=== PATIENT | male | born 1990 | race Caucasian/White ===

== ENCOUNTER 2023-05-21 22:13 | Inpatient (IN) ==
[2023-05-21] MEDS ORDERED: ACETAMINOPHEN 1,000 MG/100 ML VIAL IV STA (22:24)
[2023-05-21] MEDS ORDERED: SODIUM CHLORIDE 0.9% 1,000 ML IV SCH (22:30)
[2023-05-21] MEDS ORDERED: KETOROLAC TROMETHAMINE 15 MG/ML VIAL IV STA (22:40)
[2023-05-21] MEDS ORDERED: cefTRIAXone SODIUM 2,000 MG/50 ML BAG IV STA (22:40)
--- NOTE | 2023-05-21 22:46 | Emergency Department Note ---
Impression & Plan COVID-19, Dehydration, Elevated lactic acid level, SIRS (systemic inflammatory response syndrome), Abnormal CT scan of head ED Provider Note NAME: DAY AYALA AGE: 32 SEX: M ARRIVES VIA: Walk-In INFORMANT: Patient ED PROVIDER(S): Bonilla Sheikh MD CHIEF COMPLAINT: flu like symptoms, weakness. PLAN: Disposition: Admit MEDICAL DECISION MAKING: The patient is a 32-year-old gentleman who presents to the emergency department via walk-in accompanied by his girlfriend and her mother for evaluation of worsening cough, congestion, generalized body aches, fevers, dizziness over the past couple of weeks where they report he acutely worsened today and has had repeated fainting episodes prior to coming in. He has not followed up with his primary care doctor and has not been taking any medications for his symptoms. Patient denies any discrete chest pain. The girlfriend at the bedside reports he has been weak and not himself. He reports repetitive nausea and vomiting and diarrhea. He denies any abdominal pain. He denies any smoking history or lung disease. On my evaluation the patient is ill-appearing, febrile to 39.3 with heart rate in the 110s and blood pressure 90s/50s. He appears clinically dry. He has boggy nasal turbinates. Lungs with scant intermittent wheeze and are otherwise clear. Abdomen is benign. There is no crepitus on palpation of the neck or chest. There is no pain with tracheal manipulation. He has mild injection of the posterior pharynx without edema, tongue elevation or trismus. He appears mildly delirious with poor attention but can be redirected and will state his name but will require frequent redirection to maintain conversation. Otherwise, no focal neurologic motor deficits. Neck is supple full range of motion. EKG demonstrates sinus tachycardia without overt acute ischemia. Chest x-ray negative for acute cardiopulmonary process per my personal preliminary review and interpretation. WBC 12 K, nonspecific with neutrophil predominance though mild lymphopenia and no left shift. H/H and platelets within normal limits. INR is normal at 1.0. Chemistry without metabolic acidosis. However anion gap is mildly above normal at 13. Initial lactic acid is 4.0 in the setting of the patient's clinically dry appearance with repeat value pending following IV fluid resuscitation. Magnesium 1.5 with IV repletion provided. LFTs are unremarkable. Procalcitonin is undetectable. Respiratory viral panel/[employer] was positive for COVID-19. Group A strep PCR was negative. Given the patient's significantly elevated lactate and degree of symptoms on presentation CT imaging ordered to further evaluate for possible complications of COVID-19. At this time it is unclear whether his COVID-19 test today reflects continued illness from 2 weeks ago or if this may be a new illness on top of what he had been dealing with previously. Patient was treated with over 30 cc/kg of IV fluids with normal saline, IV APAP, Toradol and empiric antibiotics with [address] V was negative for cerebral venous sinus thrombosis. CT of the head without contrast however describes subcortical edema in the occipital lobes which can be seen with posterior reversible encephalopathy syndrome. Given the patient's delirium on presentation MRI of the brain with and without contrast ordered and is pending. Upon reevaluation the patient was significantly improved following initial treatment. Heart rate and blood pressure had normalized and were stable. The patient had defervesced. O2 saturation was 98% on room air with normal respiratory effort. The patient was sleeping comfortably. He did awake easily with soft voice and his girlfriend at the bedside also did awaken. He answered questions appropriately and without effort which was significant improvement from his initial presentation. She did agree that his mental status had improved back to normal. Given the patient's improvement in the setting of lab work which supports his diagnosis of COVID-19 on PCR including lymphopenia and no left shift, in addition to undetectable procalcitonin suspect bacterial infection is less likely at this time. In particular, meningitis is suspected to be less likely and we will defer lumbar puncture at this time pending MRI of the brain. Case was discussed with Dr. Bonilla, [facility] hospitalist who will evaluate the patient for admission. CTA of the chest subsequently negative for PE or acute process otherwise. CT of the abdomen pelvis was also negative. Further management per admitting team. Triage Nursing notes reviewed and agree them. Prior/external medical records reviewed Vital Signs: reviewed Differential diagnosis: Sepsis, UTI, pneumonia, metabolic, electrolyte abnormalities, cardiac sources, intracerebral event, toxicologic, neurologic, as well as other pathologies. ER treatment provided: See below. Diagnostics interpreted by me: ECG: Sinus tachycardia, 113 bpm, no ectopy, no overt ST elevation or depression. Cardiac Monitoring: An order for continuous cardiac monitoring was placed and demonstrated sinus tachycardia, 113 bpm, no ectopy. Laboratory studies: See below Imaging studies: See below Consultation(s): Case was discussed with Dr. Bonilla, [facility] hospitalist who will evaluate the patient for admission. HPI: The patient is a 32-year-old gentleman who presents to the emergency department via walk-in accompanied by his girlfriend and her mother for evaluation of worsening cough, congestion, generalized body aches, fevers, dizziness over the past couple of weeks where they report he acutely worsened today and has had repeated fainting episodes prior to coming in. He has not followed up with his primary care doctor and has not been taking any medications for his symptoms. Patient denies any discrete chest pain. The girlfriend at the bedside reports he has been weak and not himself. He reports repetitive nausea and vomiting and diarrhea. He denies any abdominal pain. He denies any smoking history or lung disease. ROS: See above HPI for pertinent positives & negatives. A total of 10 systems reviewed and were otherwise negative. VITALS:See Below PHYSICAL EXAMINATION: GENERAL: Awake, alert, ill-appearing, in no distress HENT: Normocephalic, atraumatic. Boggy nasal turbinates. Oropharynx with dry mucous membranes with mild injection without edema, exudates, tongue elevation or trismus. EYES: Normal conjunctiva. Sclera non-icteric. EOMI. No nystamgus. PEARRL. NECK: Supple. No nuchal rigidity. FROM. No JVD. No stridor. No pain with tracheal manipulation. RESPIRATORY: Intermittent wheeze otherwise clear to auscultation. No crepitus on palpation of the neck or chest. CARDIAC: Tachycardic rate, normal rhythm. Extremities warm and well perfused. Pulses equal. ABDOMEN: Soft, non-distended. No tenderness to palpation. No rebound or guarding. No masses. RECTAL: Deferred. MUSCULOSKELETAL: Chest examination reveals no tenderness. The back is symmetrical on inspection without obvious abnormality. There is no CVA tenderness to palpation. No joint edema. LOWER EXTREMITIES: Calves are equal size bilaterally and non-tender. No edema. No discoloration. NEURO: Mildly delirious with poor attention but can be redirected and will state his name but will require frequent redirection to maintain conversation. No focal sensory or motor deficits noted. 5/5 strength and SILT x 4 extremities. Intact finger to nose. SKIN: No rash or jaundice noted. ED COURSE: Critical Care: I have personally spent greater than 45 minutes of critical care time in the direct management of this patient. This includes bedside care, interpretation of diagnostic studies, and testing, discussion with consultants, patient, and family members, and other required patient management activities. This 45 minutes is in excess of all separately billable procedures. Bonilla Sheikh MD Past Med/Surg History Medical History No significant past medical history Surgical History No significant past surgical history Social History Smoking Status: Never smoker Preferred Language: Iranian marital status: Single current occupational status: employed Feels Safe at Home: Yes Allergies Allergies Allergy/AdvReac Type Severity Reaction Status Date / Time bee venom protein (honey bee) Allergy Mild Verified 03/25/15 20:49 Home Meds Home Medications Medication Instructions Recorded Confirmed No Known Home Medications 05/22/23 05/22/23 Results & Data (ED) Vital Signs Vital Signs - 24 hr 05/21/23 22:13 05/21/23 22:24 05/21/23 22:24 Temperature 39.3 C H Temperature Source Oral Pulse Rate 122 H 111 H 105 H Pulse Rate [Apical] Pulse Strength [Apical] Respiratory Rate 16 25 H Respiratory Effort / Characteristics Non-Labored Spontaneous Respiratory Depth Normal Respiratory Pattern Blood Pressure 94/54 L 110/78 Blood Pressure [Right Arm] Blood Pressure Mean 67 88 Blood Pressure Mean [Right Arm] Blood Pressure Position [Right Arm] Pulse Oximetry 96 95 Oxygen Delivery Method Room Air Room Air Sepsis Recent Fever Within 48 Hours Yes Sepsis New/Unexplained Change in Mental Status Yes Sepsis Action Taken by Nursing Physician Notified 05/21/23 22:30 05/21/23 22:38 05/21/23 23:01 Temperature Temperature Source Pulse Rate 114 H 107 H 95 H Pulse Rate [Apical] Pulse Strength [Apical] Respiratory Rate 22 22 20 Respiratory Effort / Characteristics Respiratory Depth Respiratory Pattern Blood Pressure 111/81 117/74 Blood Pressure [Right Arm] Blood Pressure Mean 91 88 Blood Pressure Mean [Right Arm] Blood Pressure Position [Right Arm] Pulse Oximetry 96 96 97 Oxygen Delivery Method Room Air Room Air Room Air Sepsis Recent Fever Within 48 Hours Sepsis New/Unexplained Change in Mental Status Sepsis Action Taken by Nursing 05/21/23 23:30 05/22/23 00:00 05/22/23 01:00 EDT Temperature 37.2 C Temperature Source Oral Pulse Rate 98 H 96 H Pulse Rate [Apical] 84 Pulse Strength [Apical] Normal Respiratory Rate 20 19 20 Respiratory Effort / Characteristics Non-Labored Respiratory Depth Normal Respiratory Pattern Regular Blood Pressure 117/70 113/64 Blood Pressure [Right Arm] 111/68 Blood Pressure Mean 85 80 Blood Pressure Mean [Right Arm] 82 Blood Pressure Position [Right Arm] Lying Pulse Oximetry 97 98 96 Oxygen Delivery Method Room Air Room Air Room Air Sepsis Recent Fever Within 48 Hours Sepsis New/Unexplained Change in Mental Status Sepsis Action Taken by Nursing 05/22/23 01:14 EST 05/22/23 01:27 EST 05/22/23 01:30 EST Temperature Temperature Source Pulse Rate 85 84 82 Pulse Rate [Apical] Pulse Strength [Apical] Respiratory Rate 19 18 Respiratory Effort / Characteristics Respiratory Depth Respiratory Pattern Blood Pressure 111/68 108/64 Blood Pressure [Right Arm] Blood Pressure Mean 82 78 Blood Pressure Mean [Right Arm] Blood Pressure Position [Right Arm] Pulse Oximetry 97 98 Oxygen Delivery Method Room Air Room Air Sepsis Recent Fever Within 48 Hours Sepsis New/Unexplained Change in Mental Status Sepsis Action Taken by Nursing 05/22/23 02:30 05/22/23 03:00 Temperature 37.2 C Temperature Source Oral Pulse Rate Pulse Rate [Apical] 95 H 92 H Pulse Strength [Apical] Normal Normal Respiratory Rate 20 22 Respiratory Effort / Characteristics Non-Labored Non-Labored Respiratory Depth Normal Normal Respiratory Pattern Regular Regular Blood Pressure Blood Pressure [Right Arm] 97/59 L 103/69 Blood Pressure Mean Blood Pressure Mean [Right Arm] 71 80 Blood Pressure Position [Right Arm] Lying Lying Pulse Oximetry 98 100 Oxygen Delivery Method Room Air Room Air Sepsis Recent Fever Within 48 Hours Sepsis New/Unexplained Change in Mental Status Sepsis Action Taken by Nursing Laboratory Data Attestation: I reviewed the patient's lab results. 05/21/23 22:30 05/21/23 22:30 Lab Results 05/21/23 05/21/23 05/22/23 Range/Units 22:30 23:00 00:37 WBC 12.39 H (4.8-10.8) K/ul RBC 5.35 (4.70-6.10) M/uL Hgb 16.4 (14.0-18.0) g/dl Hct 46.9 (42.0-52.0) % MCV 87.7 (80.0-100.0) fL MCH 30.7 (25.0-34.0) pg MCHC 35.0 (32.0-36.0) g/dL RDW Std Deviation 39.3 (36.4-46.3) fL RDW Coeff of Ludy 12.3 (11.5-14.5) % Plt Count 347 (130-400) K/uL MPV 9.6 (9.4-12.4) fL Immature Gran % (Auto) 0.3 % Neut % (Auto) 86.4 % Lymph % (Auto) 7.1 % Gila % (Auto) 4.9 % Eos % (Auto) 0.9 % Baso % (Auto) 0.4 % Neut # (Auto) 10.70 H (1.40-6.50) K/uL Lymph # (Auto) 0.88 L (1.20-3.40) K/uL Gila # (Auto) 0.61 H (0.11-0.59) K/uL Eos # (Auto) 0.11 (0.00-0.50) K/uL Baso # (Auto) 0.05 (0.00-0.20) K/uL Immature Gran # (Auto) 0.04 (0.01-0.20) K/uL PT 11.3 (9.0-12.0) Seconds INR 1.0 (0.9-1.1) Sodium 139 (136-145) mmol/L Potassium 3.5 (3.5-5.1) mmol/L Chloride 103 (98-107) mmol/L Carbon Dioxide 23 (21-32) mmol/L Anion Gap 13 H (3-11) BUN 7 (6-23) mg/dl Creatinine 0.88 (0.6-1.4) mg/dl Est Cr Clr Drug Dosing 114.8 ml/min Est GFR ( Amer) 133.6 ml/min Est GFR (Non-Af Amer) 115.3 ml/min BUN/Creatinine Ratio 8.0 L (10-20) Glucose 100 H (70-99(Fasting)) mg/dl Lactate 4.0 H* 2.0 (0.4-2.0) mmol/L Calcium 9.4 (8.6-10.3) mg/dl Magnesium 1.5 L (1.7-2.4) mg/dl Total Bilirubin 0.5 (0.2-1.0) mg/dl Direct Bilirubin 0.1 (0-0.2) mg/dl AST 23 (13-39) U/L ALT 17 (7-52) U/L Alkaline Phosphatase 65 (34-104) U/L Troponin I High Sens 2.3 (0-20) pg/ml Total Protein 8.5 H (6.0-8.3) gm/dl Albumin 4.5 (3.4-5.0) gm/dl Lipase 14 (11-82) U/L Procalcitonin < 0.05 (0-0.5) ng/ml Urine Color Urine Appearance (Clear) Urine pH (4.5-7.5) Ur Specific Norton (1.000-1.030) Urine Protein (Negative) Urine Glucose (UA) (Negative) Urine Ketones (Negative) Urine Blood (Negative) Urine Nitrite (Negative) Urine Bilirubin (Negative) Urine Urobilinogen (Negative) Ur Leukocyte Esterase (Negative) Adenovirus (PCR) Not Detected (NotDetected) B. pertussis DNA (PCR) Not Detected (NotDetected) B.parapertussis DNA PCR Not Detected (NotDetected) C. pneumoniae DNA (PCR) Not Detected (NotDetected) Coronavirus OC43 (PCR) Not Detected (NotDetected) Coronavirus HKU1 (PCR) Not Detected (NotDetected) Coronavirus 229E (PCR) Not Detected (NotDetected) SARS-CoV-2 (PCR) DETECTED A* (NotDetected) Coronavirus NL63 (PCR) Not Detected (NotDetected) Human Metapneumovir PCR Not Detected (NotDetected) Influenza Type A (PCR) Not Detected (NotDetected) Influenza Type B (PCR) Not Detected (NotDetected) M. pneumoniae (PCR) Not Detected (NotDetected) Parainfluenza 1 (PCR) Not Detected (NotDetected) Parainfluenza 2 (PCR) Not Detected (NotDetected) Parainfluenza 3 (PCR) Not Detected (NotDetected) Parainfluenza 4 (PCR) Not Detected (NotDetected) RSV (PCR) Not Detected (NotDetected) Entero/Rhino (PCR) Not Detected (NotDetected) Group A Strep (PCR) NOT DETECTED (NotDetected) 05/22/23 Range/Units 01:05 EST WBC (4.8-10.8) K/ul RBC (4.70-6.10) M/uL Hgb (14.0-18.0) g/dl Hct (42.0-52.0) % MCV (80.0-100.0) fL MCH (25.0-34.0) pg MCHC (32.0-36.0) g/dL RDW Std Deviation (36.4-46.3) fL RDW Coeff of Ludy (11.5-14.5) % Plt Count (130-400) K/uL MPV (9.4-12.4) fL Immature Gran % (Auto) % Neut % (Auto) % Lymph % (Auto) % Gila % (Auto) % Eos % (Auto) % Baso % (Auto) % Neut # (Auto) (1.40-6.50) K/uL Lymph # (Auto) (1.20-3.40) K/uL Gila # (Auto) (0.11-0.59) K/uL Eos # (Auto) (0.00-0.50) K/uL Baso # (Auto) (0.00-0.20) K/uL Immature Gran # (Auto) (0.01-0.20) K/uL PT (9.0-12.0) Seconds INR (0.9-1.1) Sodium (136-145) mmol/L Potassium (3.5-5.1) mmol/L Chloride (98-107) mmol/L Carbon Dioxide (21-32) mmol/L Anion Gap (3-11) BUN (6-23) mg/dl Creatinine (0.6-1.4) mg/dl Est Cr Clr Drug Dosing ml/min Est GFR ( Amer) ml/min Est GFR (Non-Af Amer) ml/min BUN/Creatinine Ratio (10-20) Glucose (70-99(Fasting)) mg/dl Lactate (0.4-2.0) mmol/L Calcium (8.6-10.3) mg/dl Magnesium (1.7-2.4) mg/dl Total Bilirubin (0.2-1.0) mg/dl Direct Bilirubin (0-0.2) mg/dl AST (13-39) U/L ALT (7-52) U/L Alkaline Phosphatase (34-104) U/L Troponin I High Sens (0-20) pg/ml Total Protein (6.0-8.3) gm/dl Albumin (3.4-5.0) gm/dl Lipase (11-82) U/L Procalcitonin (0-0.5) ng/ml Urine Color [place] Urine Appearance Clear (Clear) Urine pH 6.5 (4.5-7.5) Ur Specific Norton 1.024 (1.000-1.030) Urine Protein Negative (Negative) Urine Glucose (UA) Negative (Negative) Urine Ketones Negative (Negative) Urine Blood Negative (Negative) Urine Nitrite Negative (Negative) Urine Bilirubin Negative (Negative) Urine Urobilinogen Negative (Negative) Ur Leukocyte Esterase Negative (Negative) Adenovirus (PCR) (NotDetected) B. pertussis DNA (PCR) (NotDetected) B.parapertussis DNA PCR (NotDetected) C. pneumoniae DNA (PCR) (NotDetected) Coronavirus OC43 (PCR) (NotDetected) Coronavirus HKU1 (PCR) (NotDetected) Coronavirus 229E (PCR) (NotDetected) SARS-CoV-2 (PCR) (NotDetected) Coronavirus NL63 (PCR) (NotDetected) Human Metapneumovir PCR (NotDetected) Influenza Type A (PCR) (NotDetected) Influenza Type B (PCR) (NotDetected) M. pneumoniae (PCR) (NotDetected) Parainfluenza 1 (PCR) (NotDetected) Parainfluenza 2 (PCR) (NotDetected) Parainfluenza 3 (PCR) (NotDetected) Parainfluenza 4 (PCR) (NotDetected) RSV (PCR) (NotDetected) Entero/Rhino (PCR) (NotDetected) Group A Strep (PCR) (NotDetected) Administered Medications Lactated Ringer's (Lr) 1,000 mls @ 200 mls/hr IV .Q5H ONE Stop: 05/22/23 07:14 Last Admin: 05/22/23 02:49 Dose: 200 mls/hr Documented By: ROJAS Discontinued Medications Sodium Chloride (Nss) 1,000 mls @ 999 mls/hr IV .Q1H1M VIRGEN Stop: 05/21/23 23:30 Last Infusion: 05/21/23 23:56 Dose: Infused Documented By: Admin: 05/21/23 23:00 Dose: 999 mls/hr Documented By: ROJAS Sodium Chloride (Nss) 1,000 mls @ 999 mls/hr IV .Q1H1M VIRGEN Stop: 05/22/23 00:30 Last Infusion: 05/22/23 01:00 EDT Dose: Infused Documented By: Admin: 05/21/23 23:55 Dose: 999 mls/hr Documented By: Infusion: 05/21/23 23:55 Dose: Infused Documented By: Admin: 05/21/23 23:00 Dose: 999 mls/hr Documented By: ROJAS Acetaminophen (Ofirmev) 1,000 mg in 100 mls @ 400 mls/hr IV NOW STA Stop: 05/21/23 22:38 Last Infusion: 05/21/23 23:18 Dose: Infused Documented By: Admin: 05/21/23 23:00 Dose: 400 mls/hr Documented By: ROJAS Ceftriaxone Sodium (Rocephin) 2,000 mg in 50 mls @ 100 mls/hr IV NOW STA Stop: 05/21/23 23:09 Last Infusion: 05/21/23 23:55 Dose: Infused Documented By: Admin: 05/21/23 23:19 Dose: 100 mls/hr Documented By: ROJAS Magnesium Sulfate/Dextrose (Magnesium Sulfate / D5w) 1 gm in 100 mls @ 200 mls/hr IV Q30M VIRGEN Stop: 05/22/23 00:42 Last Infusion: 05/22/23 02:00 Dose: Infused Documented By: Admin: 05/22/23 01:27 EDT Dose: 200 mls/hr Documented By: Infusion: 05/22/23 00:30 Dose: Infused Documented By: Admin: 05/21/23 23:55 Dose: 200 mls/hr Documented By: ROJAS Ioversol (Optiray 320 500ml) 109 ml IV ONCE ONE Stop: 05/22/23 01:12 EST Last Admin: 05/22/23 01:11 EDT Dose: 109 ml Documented By: ESTRADA Ketorolac Tromethamine (Ketorolac Tromethamine 15 Mg/Ml Vial) 15 mg IV NOW STA Stop: 05/21/23 22:41 Last Admin: 05/21/23 23:00 Dose: 15 mg Documented By: ROJAS Imaging Data Radiologist's Impression: Abdomen/Pelvis CT 05/22/23 00:12 Exam(s): CT ABDOMEN + PELVIS With Contrast IV Amt: 109 ml opti 320 EXAM: CT Abdomen and Pelvis With Intravenous Contrast CLINICAL HISTORY: Reason for exam: Covid, n/v. TECHNIQUE: Axial computed tomography images of the abdomen and pelvis with intravenous contrast. Automated exposure control was utilized for the study. A dose lowering technique was utilized adhering to the principles of ALARA. CONTRAST: Patient received 109 ml opti 320 of IV contrast COMPARISON: No relevant prior studies available. FINDINGS: Lung bases: Unremarkable. No mass. No consolidation. ABDOMEN: Liver: Unremarkable. No mass. Gallbladder and bile ducts: Unremarkable. No calcified stones. No ductal dilation. Pancreas: Unremarkable. No mass. No ductal dilation. Spleen: Unremarkable. No splenomegaly. Adrenals: Unremarkable. No mass. Kidneys and ureters: Unremarkable. No solid mass. No hydronephrosis. Stomach and bowel: Unremarkable. No obstruction. No mucosal thickening. PELVIS: Appendix: No findings to suggest acute appendicitis. Bladder: Unremarkable. No mass. Reproductive: Unremarkable as visualized. ABDOMEN and PELVIS: Intraperitoneal space: Unremarkable. No free air. No significant fluid collection. Bones/joints: No acute fracture. No dislocation. Soft tissues: Unremarkable. Vasculature: Unremarkable. No abdominal aortic aneurysm. Lymph nodes: Unremarkable. No enlarged lymph nodes. IMPRESSION: Normal abdomen and pelvis CT. Electronically signed by: Chan Mccain MD 05/22/23 03:12 AM Chest CTA 05/22/23 00:12 Exam(s): CTA CHEST IV Amt: 109 ml opti 320 EXAM: CT Angiography Chest With Intravenous Contrast CLINICAL HISTORY: Reason for exam: Covid, sob, tachcyardia, r/o PE. TECHNIQUE: Axial computed tomographic angiography images of the chest with intravenous contrast. Automated exposure control was utilized for the study. A dose lowering technique was utilized adhering to the principles of ALARA. MIP reconstructed images were created and reviewed. COMPARISON: No relevant prior studies available. FINDINGS: Pulmonary arteries: Unremarkable. No pulmonary embolism. Aorta: No acute findings. No thoracic aortic aneurysm. Lungs: Unremarkable. No mass. No consolidation. Pleural space: Unremarkable. No significant effusion. No pneumothorax. Heart: Unremarkable. No cardiomegaly. No significant pericardial effusion. No evidence of RV dysfunction. Bones/joints: No acute fracture. No dislocation. Soft tissues: Unremarkable. Lymph nodes: Unremarkable. No enlarged lymph nodes. IMPRESSION: Normal chest CTA. No pulmonary embolism. Electronically signed by: Chan Mccain MD 05/22/23 03:[address] 05/22/23 00:13 CR Exam(s): CT HEAD Without Contrast EXAM: CT Head Without Intravenous Contrast CLINICAL HISTORY: Reason for exam: syncope UMANZOR, covid. TECHNIQUE: Axial computed tomography images of the head/brain without intravenous contrast. Automated exposure control was utilized for the study. A dose lowering technique was utilized adhering to the principles of ALARA. COMPARISON: No relevant prior studies available. FINDINGS: Brain: There is subcortical edema in the occipital lobes. No hemorrhage. No significant white matter disease. Ventricles: Unremarkable. No ventriculomegaly. Bones/joints: Unremarkable. No acute fracture. Soft tissues: Unremarkable. Sinuses: Unremarkable as visualized. No acute sinusitis. Mastoid air cells: Unremarkable as visualized. No mastoid effusion. IMPRESSION: Subcortical edema in the occipital lobes, which can be seen with posterior reversible encephalopathy syndrome. If there is continued clinical concern, an MRI may be of benefit for further evaluation. Communications: Verify Receipt Electronically signed by: Uzma Merlos MD 05/22/23 01:[address] 05/22/23 00:13 Exam(s): CT HEAD With Contrast IV Amt: 109 ml opti 320 EXAM: CT Angiography Head With Intravenous Contrast CLINICAL HISTORY: Reason for exam: Covid, UMANZOR, syncope r/o CVST. TECHNIQUE: Axial computed tomographic angiography images of the head with intravenous contrast. Automated exposure control was utilized for the study. A dose lowering technique was utilized adhering to the principles of ALARA. MIP reconstructed images were created and reviewed. CONTRAST: Patient received 109 ml opti 320 of IV contrast COMPARISON: No relevant prior studies available. FINDINGS: The dural venous sinuses are patent. Right internal carotid artery: No acute findings. Intracranial segment is patent with no significant stenosis. No aneurysm. Right anterior cerebral artery: Unremarkable. No occlusion or significant stenosis. No aneurysm. Right middle cerebral artery: Unremarkable. No occlusion or significant stenosis. No aneurysm. Right posterior cerebral artery: Unremarkable. No occlusion or significant stenosis. No aneurysm. Right vertebral artery: Unremarkable as visualized. Left internal carotid artery: No acute findings. Intracranial segment is patent with no significant stenosis. No aneurysm. Left anterior cerebral artery: Unremarkable. No occlusion or significant stenosis. No aneurysm. Left middle cerebral artery: Unremarkable. No occlusion or significant stenosis. No aneurysm. Left posterior cerebral artery: Unremarkable. No occlusion or significant stenosis. No aneurysm. Left vertebral artery: Unremarkable as visualized. Basilar artery: Unremarkable. No occlusion or significant stenosis. No aneurysm. IMPRESSION: Negative CT angiogram of the head. Electronically signed by: Uzma Merlos MD 05/22/23 01:42 AM Discharge Plan Visit Data Chief Complaint: Illness Stated Complaint: FEVER,INCOHERENT,TACHYCARDIA,VOMITING,SYNCOPE ED Provider: Bonilla Sheikh Discharge Problem: COVID-19, Dehydration, Elevated lactic acid level, SIRS (systemic inflammatory response syndrome), Abnormal CT scan of head Discharge Instructions Interventions: ED Discharge Assessment Last Done: 05/22/23 03:36
[2023-05-21 22:52] LABS: Basophils # (auto) 0.05 K/uL (0.00-0.20); Basophils % (auto) 0.4 %; Eosinophils # (auto) 0.11 K/uL (0.00-0.50); Eosinophils % (auto) 0.9 %; Hematocrit (blood only) 46.9 % (42.0-52.0); Hemoglobin 16.4 g/dl (14.0-18.0); Immature Granulocytes # (auto) 0.04 K/uL (0.01-0.20); Immature Granulocytes % (auto) 0.3 %; Lymphocytes # (auto) 0.88 K/uL (1.20-3.40); Lymphocytes % (auto) 7.1 %; Mean Corpuscular Hemoglobin 30.7 pg (25.0-34.0); Mean Corpuscular Volume 87.7 fL (80.0-100.0); Mean Platelet Volume 9.6 fL (9.4-12.4); Monocytes # (auto) 0.61 K/uL (0.11-0.59); Monocytes % (auto) 4.9 %; Neutrophils % (auto) 86.4 %; Platelet Count 347 K/uL (130-400); RDW Coefficient of Variation 12.3 % (11.5-14.5); RDW Standard Deviation 39.3 fL (36.4-46.3); Red Blood Count 5.35 M/uL (4.70-6.10); White Blood Count 12.39 K/ul (4.8-10.8)
[2023-05-21] MEDS: SODIUM CHLORIDE 0.9% 1,000 ML IV SCH ×2 (23:00→23:55)
[2023-05-21 23:06] LABS: Albumin Level 4.5 gm/dl (3.4-5.0); Bilirubin Direct 0.1 mg/dl (0-0.2); Bilirubin,Total 0.5 mg/dl (0.2-1.0); Calcium 9.4 mg/dl (8.6-10.3); Magnesium 1.5 mg/dl (1.7-2.4); Potassium 3.5 mmol/L (3.5-5.1)
[2023-05-21 23:12] LABS: Creatinine Clr Calc Pharmacy 114.8 ml/min; Est GFR (African American) 133.6 ml/min; Est GFR (Non-African American) 115.3 ml/min; Total Protein 8.5 gm/dl (6.0-8.3)
[2023-05-21 23:26] LABS: Prothrombin Time 11.3 Seconds (9.0-12.0)
[2023-05-21 23:38] LABS: Adenovirus PCR Not Detected (NotDetected); Bordetella parapertussis PCR Not Detected (NotDetected); Bordetella pertussis PCR Not Detected (NotDetected); Chlamydia pneumoniae PCR Not Detected (NotDetected); Coronavirus 229E PCR Not Detected (NotDetected); Coronavirus HKU1 PCR Not Detected (NotDetected); Coronavirus NL63 PCR Not Detected (NotDetected); Coronavirus OC43PCR Not Detected (NotDetected); Human Metapneumovirus PCR Not Detected (NotDetected); Influenza A PCR Not Detected (NotDetected); Influenza B PCR Not Detected (NotDetected); Mycoplasma pneumoniae PCR Not Detected (NotDetected); Parainfluenza Virus 1 PCR Not Detected (NotDetected); Parainfluenza Virus 2 PCR Not Detected (NotDetected); Parainfluenza Virus 3 PCR Not Detected (NotDetected); Parainfluenza Virus 4 PCR Not Detected (NotDetected); Respiratory Syncytial VirusPCR Not Detected (NotDetected); Rhinovirus/Enterovirus PCR Not Detected (NotDetected)
[2023-05-21 23:55] LABS: Coronavirus CoV-2 (COVID19)PCR DETECTED (NotDetected)
[2023-05-21] MEDS: MAGNESIUM SULFATE / D5W 1 GM/100 ML BAG IV SCH (23:55)
[2023-05-22] MEDS ORDERED: OPTIRAY 320 500ml IV ONE (01:11)
[2023-05-22 01:15] LABS: Troponin I High Sensitivity 2.3 pg/ml (0-20)
[2023-05-22] MEDS: MAGNESIUM SULFATE / D5W 1 GM/100 ML BAG IV SCH (01:27)
[2023-05-22 01:33] LABS: Appearance Urine Clear (Clear); Bilirubin Urine Negative (Negative); Blood Urine Negative (Negative); Color Urine Orange; Glucose Urine UA Negative (Negative); Ketones Urine Negative (Negative); Leukocyte Esterase Urine Negative (Negative); Nitrite Urine Negative (Negative); Protein Urine Negative (Negative); Specific Gravity Urine 1.024 (1.000-1.030); Urobilinogen Urine Negative (Negative); pH Urine 6.5 (4.5-7.5)
--- NOTE | 2023-05-22 01:43 | CT Scan Report ---
Exam(s): CT HEAD With Contrast IV Amt: 109 ml opti 320 EXAM: CT Angiography Head With Intravenous Contrast CLINICAL HISTORY: Reason for exam: Covid, UMANZOR, syncope r/o CVST. TECHNIQUE: Axial computed tomographic angiography images of the head with intravenous contrast. Automated exposure control was utilized for the study. A dose lowering technique was utilized adhering to the principles of ALARA. MIP reconstructed images were created and reviewed. CONTRAST: Patient received 109 ml opti 320 of IV contrast COMPARISON: No relevant prior studies available. FINDINGS: The dural venous sinuses are patent. Right internal carotid artery: No acute findings. Intracranial segment is patent with no significant stenosis. No aneurysm. Right anterior cerebral artery: Unremarkable. No occlusion or significant stenosis. No aneurysm. Right middle cerebral artery: Unremarkable. No occlusion or significant stenosis. No aneurysm. Right posterior cerebral artery: Unremarkable. No occlusion or significant stenosis. No aneurysm. Right vertebral artery: Unremarkable as visualized. Left internal carotid artery: No acute findings. Intracranial segment is patent with no significant stenosis. No aneurysm. Left anterior cerebral artery: Unremarkable. No occlusion or significant stenosis. No aneurysm. Left middle cerebral artery: Unremarkable. No occlusion or significant stenosis. No aneurysm. Left posterior cerebral artery: Unremarkable. No occlusion or significant stenosis. No aneurysm. Left vertebral artery: Unremarkable as visualized. Basilar artery: Unremarkable. No occlusion or significant stenosis. No aneurysm. IMPRESSION: Negative CT angiogram of the head. Electronically signed by: Uzma Merlos MD 05/22/23 01:42 AM
--- NOTE | 2023-05-22 01:46 | CT Scan Report ---
Exam(s): CT HEAD Without Contrast EXAM: CT Head Without Intravenous Contrast CLINICAL HISTORY: Reason for exam: syncope UMANZOR, covid. TECHNIQUE: Axial computed tomography images of the head/brain without intravenous contrast. Automated exposure control was utilized for the study. A dose lowering technique was utilized adhering to the principles of ALARA. COMPARISON: No relevant prior studies available. FINDINGS: Brain: There is subcortical edema in the occipital lobes. No hemorrhage. No significant white matter disease. Ventricles: Unremarkable. No ventriculomegaly. Bones/joints: Unremarkable. No acute fracture. Soft tissues: Unremarkable. Sinuses: Unremarkable as visualized. No acute sinusitis. Mastoid air cells: Unremarkable as visualized. No mastoid effusion. IMPRESSION: Subcortical edema in the occipital lobes, which can be seen with posterior reversible encephalopathy syndrome. If there is continued clinical concern, an MRI may be of benefit for further evaluation. Communications: Verify Receipt Electronically signed by: Uzma Merlos MD 05/22/23 01:44 AM
[2023-05-22] MEDS ORDERED: LACTATED RINGER'S 1,000 ML IV ONE (02:15)
--- NOTE | 2023-05-22 03:01 | History & Physical Report ---
Date of Service May 22, 2023 Assessment & Plan (1) Sepsis: Plan: Secondary to COVID-19 bronchitis with superimposed bacterial infection O2 sats greater than 94% at the ER Headache, transient encephalopathy symptoms, subcortical edema on CT head, possible posterior reversible encephalopathy syndrome secondary to COVID-19 illness Medical telemetry CS, Azithromycin course MRI brain, Neurology consult Re: Abnormal CT head Seizure precautions for possible PRES DVT prophylaxis. Lovenox subcu Full code Text document was generated using [employer] voice recognition software. It may contain grammatical or spelling errors. Kindly contact undersigned for clarification of any documentation item in question. History of Present Illness Chief Complaint: Headache, nausea, vomiting, confusion as per records Primary Care Provider: NO PCP History obtained from patient and records. No significant medical history. 2 weeks history of junky cough symptoms productive of yellow-green sputum, body aches, poor appetite, chest pain/shortness of breath from coughing. Possible sick contacts at work. Patient completed COVID-19 vaccination. Yesterday, patient woke up with generalized headache symptoms followed by nausea, emesis. No abdominal pain. Patient somewhat confused as per girlfriend. Patient brought to ER for evaluation. IV ceftriaxone administered at the ER. Patient mentation currently back to baseline. Medical History as above Surgical History : None Family History : Heart disease Personal/Social history : Non-smoker, occasional EtOH intake, refuse bin morning caregiver's/state employee Allergies Allergy/AdvReac Type Severity Reaction Status Date / Time bee venom protein (honey bee) Allergy Mild Verified 03/25/15 20:49 Home Medications Medication Instructions Recorded Confirmed Type No Known Home Medications 05/22/23 05/22/23 History Past Med/Surg History Medical History No significant past medical history Surgical History No significant past surgical history Social History Smoking Status: Never smoker Preferred Language: Estonian marital status: Single current occupational status: employed Feels Safe at Home: Yes Review of Systems Review of Systems: As per HPI, all other systems reviewed and negative Physical Exam Physical Exam: GENERAL: Slightly uncomfortable, no respiratory distress SKIN: Normal color, warm HEENT: [place] palpebral conjunctivae, no ptosis, dry buccal mucosa NECK : Supple, no tenderness CHEST : Decreased breath sounds, no tenderness HEART : RRR, no obvious murmurs ABDOMEN: Some distention, nontender EXTREMITIES : No LE swelling/tenderness, no other conspicuous deformities noted NEUROLOGIC : Coherent, no facial asymmetry, no other gross focality Results & Data Results & Data Vital Signs (Past 12 Hours) Vital Signs Temp Pulse Pulse Resp BP BP Pulse Ox 05/22/23 01:30 EST 82 18 108/64 98 05/22/23 01:14 EST 85 19 111/68 97 05/22/23 01:00 EDT 37.2 C 84 20 111/68 96 05/22/23 00:00 96 H 19 113/64 98 05/21/23 23:30 98 H 20 117/70 97 05/21/23 23:01 95 H 20 117/74 97 05/21/23 22:38 107 H 22 111/81 96 05/21/23 22:30 114 H 22 96 05/21/23 22:24 105 H 25 H 110/78 95 05/21/23 22:24 111 H 05/21/23 22:13 39.3 C H 122 H 16 94/54 L 96 O2 Del Method 05/22/23 01:30 EST Room Air 05/22/23 01:14 EST Room Air 05/22/23 01:00 EDT Room Air 05/22/23 00:00 Room Air 05/21/23 23:30 Room Air 05/21/23 23:01 Room Air 05/21/23 22:38 Room Air 05/21/23 22:30 Room Air 05/21/23 22:24 Room Air 05/21/23 22:24 05/21/23 22:13 Room Air Laboratory Results Laboratory Results WBC 12.39 K/ul (4.8-10.8) H 05/21/23 22:30 RBC 5.35 M/uL (4.70-6.10) 05/21/23 22:30 Hgb 16.4 g/dl (14.0-18.0) 05/21/23 22:30 Hct 46.9 % (42.0-52.0) 05/21/23 22:30 MCV 87.7 fL (80.0-100.0) 05/21/23 22:30 MCH 30.7 pg (25.0-34.0) 05/21/23: MCHC 35.0 g/dL (32.0-36.0) 05/21/23: RDW Std Deviation 39.3 fL (36.4-46.3) 05/21/23: RDW Coeff of [place] 12.3 % (11.5-14.5) 05/21/23: Plt Count 347 K/uL (130-400) 05/21/23: MPV 9.6 fL (9.4-12.4) 05/21/23: Immature Gran % (Auto) 0.3 % 05/21/23: Neut % (Auto) 86.4 % 05/21/23: Lymph % (Auto) 7.1 % 05/21/23: Patrick % (Auto) 4.9 % 05/21/23: Eos % (Auto) 0.9 % 05/21/23: Baso % (Auto) 0.4 % 05/21/23: Neut # (Auto) 10.70 K/uL (1.40-6.50) H 05/21/23 22: Lymph # (Auto) 0.88 K/uL (1.20-3.40) L 05/21/23 22: Patrick # (Auto) 0.61 K/uL (0.11-0.59) H 05/21/23 22:30 Eos # (Auto) 0.11 K/uL (0.00-0.50) 05/21/23 22: Baso # (Auto) 0.05 K/uL (0.00-0.20) 05/21/23: Immature Gran # (Auto) 0.04 K/uL (0.01-0.20) 05/21/23 22: PT 11.3 Seconds (9.0-12.0) 05/21/23 22: INR 1.0 (0.9-1.1) 05/21/23 22:30 Sodium 139 mmol/L (136-145) 05/21/23 22: Potassium 3.5 mmol/L (3.5-5.1) 05/21/23 22:30 Chloride 103 mmol/L (98-107) 05/21/23 22:30 Carbon Dioxide 23 mmol/L (21-32) 05/21/23 22:30 Anion Gap 13 (3-11) H 05/21/23 22:30 BUN 7 mg/dl (6-23) 05/21/23 22:30 Creatinine 0.88 mg/dl (0.6-1.4) 05/21/23 22:30 Est Cr Clr Drug Dosing 114.8 ml/min 05/21/23 22:30 Est GFR ( Amer) 133.6 ml/min 05/21/23 22:30 Est GFR (Non-Af Amer) 115.3 ml/min 05/21/23 22:30 BUN/Creatinine Ratio 8.0 (10-20) L 05/21/23 22:30 Glucose 100 mg/dl (70-99(Fasting)) H 05/21/23 22:30 Lactate 2.0 mmol/L (0.4-2.0) 05/22/23 00:37 Calcium 9.4 mg/dl (8.6-10.3) 05/21/23 22:30 Magnesium 1.5 mg/dl (1.7-2.4) L 05/21/23 22:30 Total Bilirubin 0.5 mg/dl (0.2-1.0) 05/21/23 22:30 Direct Bilirubin 0.1 mg/dl (0-0.2) 05/21/23 22:30 AST 23 U/L (13-39) 05/21/23 22:30 ALT 17 U/L (7-52) 05/21/23 22:30 Alkaline Phosphatase 65 U/L (34-104) 05/21/23 22:30 Troponin I High Sens 2.3 pg/ml (0-20) 05/22/23 00:37 Total Protein 8.5 gm/dl (6.0-8.3) H 05/21/23 22:30 Albumin 4.5 gm/dl (3.4-5.0) 05/21/23 22:30 Lipase 14 U/L (11-82) 05/22/23 00:37 Procalcitonin < 0.05 ng/ml (0-0.5) 05/21/23 22:30 Urine Color [place] 05/22/23 01:05 EST Urine Appearance Clear (Clear) 05/22/23 01:05 EST Urine pH 6.5 (4.5-7.5) 05/22/23 01:05 EST Ur Specific [place] 1.024 (1.000-1.030) 05/22/23 01:05 EST Urine Protein Negative (Negative) 05/22/23 01:05 EST Urine Glucose (UA) Negative (Negative) 05/22/23 01:05 EST Urine Ketones Negative (Negative) 05/22/23 01:05 EST Urine Blood Negative (Negative) 05/22/23 01:05 EST Urine Nitrite Negative (Negative) 05/22/23 01:05 EST Urine Bilirubin Negative (Negative) 05/22/23 01:05 EST Urine Urobilinogen Negative (Negative) 05/22/23 01:05 EST Ur Leukocyte Esterase Negative (Negative) 05/22/23 01:05 EST Adenovirus (PCR) Not Detected (NotDetected) 05/21/23 22:30 B. pertussis DNA (PCR) Not Detected (NotDetected) 05/21/23 22:30 B.parapertussis DNA PCR Not Detected (NotDetected) 05/21/23 22:30 C. pneumoniae DNA (PCR) Not Detected (NotDetected) 05/21/23 22:30 Coronavirus OC43 (PCR) Not Detected (NotDetected) 05/21/23 22:30 Coronavirus HKU1 (PCR) Not Detected (NotDetected) 05/21/23 22:30 Coronavirus 229E (PCR) Not Detected (NotDetected) 05/21/23 22:30 SARS-CoV-2 (PCR) DETECTED (NotDetected) A* 05/21/23 22:30 Coronavirus NL63 (PCR) Not Detected (NotDetected) 05/21/23 22:30 Human Metapneumovir PCR Not Detected (NotDetected) 05/21/23 22:30 Influenza Type A (PCR) Not Detected (NotDetected) 05/21/23 22:30 Influenza Type B (PCR) Not Detected (NotDetected) 05/21/23 22:30 M. pneumoniae (PCR) Not Detected (NotDetected) 05/21/23 22:30 Parainfluenza 1 (PCR) Not Detected (NotDetected) 05/21/23 22:30 Parainfluenza 2 (PCR) Not Detected (NotDetected) 05/21/23 22:30 Parainfluenza 3 (PCR) Not Detected (NotDetected) 05/21/23 22:30 Parainfluenza 4 (PCR) Not Detected (NotDetected) 05/21/23 22:30 RSV (PCR) Not Detected (NotDetected) 05/21/23 22:30 Entero/Rhino (PCR) Not Detected (NotDetected) 05/21/23 22:30 Group A Strep (PCR) NOT DETECTED (NotDetected) 05/21/23 23:[address] 05/22/23 00:13 CR Exam(s): CT HEAD Without Contrast EXAM: CT Head Without Intravenous Contrast CLINICAL HISTORY: Reason for exam: syncope UMANZOR, covid. TECHNIQUE: Axial computed tomography images of the head/brain without intravenous contrast. Automated exposure control was utilized for the study. A dose lowering technique was utilized adhering to the principles of ALARA. COMPARISON: No relevant prior studies available. FINDINGS: Brain: There is subcortical edema in the occipital lobes. No hemorrhage. No significant white matter disease. Ventricles: Unremarkable. No ventriculomegaly. Bones/joints: Unremarkable. No acute fracture. Soft tissues: Unremarkable. Sinuses: Unremarkable as visualized. No acute sinusitis. Mastoid air cells: Unremarkable as visualized. No mastoid effusion. IMPRESSION: Subcortical edema in the occipital lobes, which can be seen with posterior reversible encephalopathy syndrome. If there is continued clinical concern, an MRI may be of benefit for further evaluation. Communications: Verify Receipt Electronically signed by: Uzma Merlos MD 05/22/23 01:[address] 05/22/23 00:13 Exam(s): CT HEAD With Contrast IV Amt: 109 ml opti 320 EXAM: CT Angiography Head With Intravenous Contrast CLINICAL HISTORY: Reason for exam: Covid, UMANZOR, syncope r/o CVST. TECHNIQUE: Axial computed tomographic angiography images of the head with intravenous contrast. Automated exposure control was utilized for the study. A dose lowering technique was utilized adhering to the principles of ALARA. MIP reconstructed images were created and reviewed. CONTRAST: Patient received 109 ml opti 320 of IV contrast COMPARISON: No relevant prior studies available. FINDINGS: The dural venous sinuses are patent. Right internal carotid artery: No acute findings. Intracranial segment is patent with no significant stenosis. No aneurysm. Right anterior cerebral artery: Unremarkable. No occlusion or significant stenosis. No aneurysm. Right middle cerebral artery: Unremarkable. No occlusion or significant stenosis. No aneurysm. Right posterior cerebral artery: Unremarkable. No occlusion or significant stenosis. No aneurysm. Right vertebral artery: Unremarkable as visualized. Left internal carotid artery: No acute findings. Intracranial segment is patent with no significant stenosis. No aneurysm. Left anterior cerebral artery: Unremarkable. No occlusion or significant stenosis. No aneurysm. Left middle cerebral artery: Unremarkable. No occlusion or significant stenosis. No aneurysm. Left posterior cerebral artery: Unremarkable. No occlusion or significant stenosis. No aneurysm. Left vertebral artery: Unremarkable as visualized. Basilar artery: Unremarkable. No occlusion or significant stenosis. No aneurysm. IMPRESSION: Negative CT angiogram of the head. Electronically signed by: Uzma Merlos MD 05/22/23 01:42 AM Diagnostic Findings EKG as per my interpretation : Rate 115, sinus tachycardia, LAD, LAFB, incomplete RBBB, no ischemia
[2023-05-22] MEDS ORDERED: PROMETHAZINE HCL 6.25 MG in SODIUM CHLORIDE 0.9% 50 ML IV PRN (03:09)
[2023-05-22] MEDS ORDERED: oxyCODONE HCL IR 5 MG TAB (IMMEDIATE RELEASE) PO PRN (03:10)
--- NOTE | 2023-05-22 03:10 | CT Scan Report ---
Exam(s): CTA CHEST IV Amt: 109 ml opti 320 EXAM: CT Angiography Chest With Intravenous Contrast CLINICAL HISTORY: Reason for exam: Covid, sob, tachcyardia, r/o PE. TECHNIQUE: Axial computed tomographic angiography images of the chest with intravenous contrast. Automated exposure control was utilized for the study. A dose lowering technique was utilized adhering to the principles of ALARA. MIP reconstructed images were created and reviewed. COMPARISON: No relevant prior studies available. FINDINGS: Pulmonary arteries: Unremarkable. No pulmonary embolism. Aorta: No acute findings. No thoracic aortic aneurysm. Lungs: Unremarkable. No mass. No consolidation. Pleural space: Unremarkable. No significant effusion. No pneumothorax. Heart: Unremarkable. No cardiomegaly. No significant pericardial effusion. No evidence of RV dysfunction. Bones/joints: No acute fracture. No dislocation. Soft tissues: Unremarkable. Lymph nodes: Unremarkable. No enlarged lymph nodes. IMPRESSION: Normal chest CTA. No pulmonary embolism. Electronically signed by: Chan Mccain MD 05/22/23 03:09 AM
[2023-05-22] MEDS ORDERED: AZITHROMYCIN 500 MG in DEXTROSE 5% 250 ML IV STA (03:13)
--- NOTE | 2023-05-22 03:13 | CT Scan Report ---
Exam(s): CT ABDOMEN + PELVIS With Contrast IV Amt: 109 ml opti 320 EXAM: CT Abdomen and Pelvis With Intravenous Contrast CLINICAL HISTORY: Reason for exam: Covid, n/v. TECHNIQUE: Axial computed tomography images of the abdomen and pelvis with intravenous contrast. Automated exposure control was utilized for the study. A dose lowering technique was utilized adhering to the principles of ALARA. CONTRAST: Patient received 109 ml opti 320 of IV contrast COMPARISON: No relevant prior studies available. FINDINGS: Lung bases: Unremarkable. No mass. No consolidation. ABDOMEN: Liver: Unremarkable. No mass. Gallbladder and bile ducts: Unremarkable. No calcified stones. No ductal dilation. Pancreas: Unremarkable. No mass. No ductal dilation. Spleen: Unremarkable. No splenomegaly. Adrenals: Unremarkable. No mass. Kidneys and ureters: Unremarkable. No solid mass. No hydronephrosis. Stomach and bowel: Unremarkable. No obstruction. No mucosal thickening. PELVIS: Appendix: No findings to suggest acute appendicitis. Bladder: Unremarkable. No mass. Reproductive: Unremarkable as visualized. ABDOMEN and PELVIS: Intraperitoneal space: Unremarkable. No free air. No significant fluid collection. Bones/joints: No acute fracture. No dislocation. Soft tissues: Unremarkable. Vasculature: Unremarkable. No abdominal aortic aneurysm. Lymph nodes: Unremarkable. No enlarged lymph nodes. IMPRESSION: Normal abdomen and pelvis CT. Electronically signed by: Chan Mccain MD 05/22/23 03:12 AM
[2023-05-22] MEDS ORDERED: LORazepam 2 MG/1 ML VIAL IV PRN (03:37)
[2023-05-22 04:20] LABS: Basophils # (auto) 0.04 K/uL (0.00-0.20); Basophils % (auto) 0.3 %; Eosinophils # (auto) 0.02 K/uL (0.00-0.50); Eosinophils % (auto) 0.2 %; Hematocrit (blood only) 39.6 % (42.0-52.0); Hemoglobin 13.8 g/dl (14.0-18.0); Immature Granulocytes # (auto) 0.05 K/uL (0.01-0.20); Immature Granulocytes % (auto) 0.4 %; Lymphocytes # (auto) 0.54 K/uL (1.20-3.40); Lymphocytes % (auto) 4.3 %; Mean Corpuscular Hemoglobin 31.2 pg (25.0-34.0); Mean Corpuscular Hgb Conc 34.8 g/dL (32.0-36.0); Mean Corpuscular Volume 89.6 fL (80.0-100.0); Mean Platelet Volume 9.7 fL (9.4-12.4); Monocytes # (auto) 0.61 K/uL (0.11-0.59); Monocytes % (auto) 4.8 %; Neutrophils # (auto) 11.44 K/uL (1.40-6.50); Platelet Count 262 K/uL (130-400); RDW Coefficient of Variation 12.6 % (11.5-14.5); RDW Standard Deviation 41.4 fL (36.4-46.3); Red Blood Count 4.42 M/uL (4.70-6.10)
[2023-05-22] MEDS ORDERED: LEVALBUTEROL TARTRATE 15 GM HFA.AER.AD INH PRN (04:31)
[2023-05-22 04:37] LABS: BUN Creatinine Ratio 9.5 (10-20); Calcium 8.1 mg/dl (8.6-10.3); Creatinine Clr Calc Pharmacy 136.5 ml/min; Est GFR (African American) 143.5 ml/min; Est GFR (Non-African American) 123.8 ml/min; Magnesium 1.9 mg/dl (1.7-2.4)
[2023-05-22] MEDS: ACETAMINOPHEN 325 MG TAB PO PRN ×2 (07:23→19:58)
[2023-05-22] MEDS ORDERED: guaiFENesin/DEXTROM SYRUP 100MG/10MG 5ML UDC PO PRN (08:50)
--- NOTE | 2023-05-22 09:53 | XRay Report ---
XR orbits for MRI CLINICAL HISTORY: Screening for foreign body for MRI TECHNIQUE: AP and lateral views of the orbits were submitted for interpretation. Comparison: None available at the time of this dictation. FINDINGS/IMPRESSION: There are no radiopaque metallic foreign bodies. The osseous structures are unremarkable. Patient is cleared for MRI. ACT 112: Negative or not required by law. Electronically signed by: Gus Beltran M.D. 05/22/2023 9:51 AM
[2023-05-22] MEDS: ENOXAPARIN INJ 40 MG/0.4 ML SYR SQ SCH (10:37)
--- NOTE | 2023-05-22 10:37 | XRay Report ---
XR chest 1V portable CLINICAL HISTORY: Sepsis TECHNIQUE: Single frontal radiograph of the chest was obtained. Comparison: None available at the time of this dictation. FINDINGS: No lines and tubes are seen. The cardiomediastinal silhouette is normal. The lungs are clear. No evid ence of pleural effusion or pneumothorax. IMPRESSION: No acute abnormalities and in particular no radiographic evidence of pneumonia. ACT 112: Negative or not required by law. Electronically signed by: Gus Beltran M.D. 05/22/2023 10:36 AM
[2023-05-22] MEDS ORDERED: GADOBUTROL 65ML VIAL IV ONE (11:08)
--- NOTE | 2023-05-22 11:25 | Magnetic Resonance Report ---
MR brain wo/w con CLINICAL HISTORY: Covid-19 Eval for PRES TECHNIQUE: Multiplanar and multisequence MR images of the brain were obtained prior to and following administration of gadolinium contrast. Comparison: Comparison is made to CT head 05/22/2023 FINDINGS: No abnormal restricted diffusion is identified. The white matter is unremarkable. The ventricular sys tem is normal in appearance. No mass or abnormal enhancement is seen. There is no mass effect or midl ine shift. There is no evidence of acute intraparenchymal hemorrhage. No extra axial fluid collection s are seen. The corpus callosum, pituitary gland, and cerebellar tonsils appear grossly unremarkable. Flow voids of the major intracranial arterial vessels are identified. The imaged portions of the para nasal sinuses, mastoid air cells, and orbits are unremarkable. IMPRESSION: No acute abnormality is seen in particular there is no evidence of T2 hyperintensity or enhancement t o suggest posterior reversible encephalopathy syndrome. ACT 112: Negative or not required by law. Electronically signed by: Gus Beltran M.D. 05/22/2023 11:23 AM
--- NOTE | 2023-05-22 11:28 | Neurology Consultation ---
Date of Consultation May 22, 2023 Assessment & Plan (1) COVID-19: Patient presents with illness secondary to COVID-19. CT head was read incorrectly due to his young age, there is no evidence of PRES and this is further supported by his negative MRI. No concern for a neurologic process, no further workup recommended. Telehealth Consultation Telehealth Information Telehealth Information: I performed this visit using a real-time telehealth connection between my location and the patients location ([facility]). After connecting through interactive tele-video, patient was identified by name and date of and/or wristband check.Patient (or authorized healthcare textile machinery sales representative) was informed that this was a telemedicine visit and it was being conducted confidentially over secure lines. My office door was closed and no one else was present in the room with me.Patient (or authorized healthcare textile machinery sales representative) provided consent to proceed with the visit, expressed an understanding of privacy and security of the telemedicine visit, and gave permission to have a hospital textile machinery sales representative in the room in order to assist with the visit and to conduct portions of the visit, as needed. I informed the patient (or authorized healthcare textile machinery sales representative) that I reviewed their record and presented the opportunity for them to ask any questions regarding the visit today. The patient agreed to participate. History of Present Illness Reason for Consultation: Abnormal head CT Requesting Physician: Dr. Khanna Attending Physician: Azam Khanna MD History of Present Illness Ld Evans is a 32 yo M presenting with COVID-19, he had a head CT due to some mild confusion on arrival in the setting of fever and hypotension. CT head was read as possible PRES and he was admitted for further workup. No headache, no focal neurologic deficits, no seizure reported. Today he feels better than he did yesterday. Allergies Allergy/AdvReac Type Severity Reaction Status Date / Time bee venom protein (honey bee) Allergy Mild Verified 05/22/23 09:37 Home Medications Medication Instructions Recorded Confirmed Type No Known Home Medications 05/22/23 05/22/23 History Patient History Medical History No significant past medical history Surgical History No significant past surgical history Social History Smoking Status: Never smoker Hx Alcohol Use: Yes Hx Substance Use: No Preferred Language: Faroese Communication Ability: Effective Shoulder Puncher Required: No Beliefs That Will Affect Care: None marital status: Single Current Living Situation: Significant Other and Other Current Living Situation Comment: girlfriend, and another male/female couple current occupational status: employed Feels Safe at Home: Yes Safety Concerns: Feels Safe At This Time Assistive Devices: None Review of Systems +Chills, fever Physical Exam Neurological Examination: Mental Status: Awake and alert. Oriented to person, place, and time. Fluent. Comprehension intact. Affect appropriate. Cranial Nerves: III/IV/: Versions intact without nystagmus, no gaze preference. VII: Facial expression symmetric Motor: Strength was symmetric and antigravity throughout. There were no abnormal movements. Results & Data Vital Signs (Past 12 Hours) Vital Signs Temp Pulse Pulse Resp BP BP Pulse Ox 05/22/23 10:40 36.9 C 83 20 109/66 96 05/22/23 08:52 36.7 C 118 H 22 118/65 95 05/22/23 07:21 38.1 C H 103 H 22 128/72 95 05/22/23 04:00 05/22/23 03:00 92 H 22 103/69 100 05/22/23 02:30 37.2 C 95 H 20 97/59 L 98 05/22/23 01:30 EST 82 18 108/64 98 05/22/23 01:27 EST 84 05/22/23 01:14 EST 85 19 111/68 97 05/22/23 01:00 EDT 37.2 C 84 20 111/68 96 Pulse Ox O2 Del Method O2 Del Method 05/22/23 10:40 Room Air 05/22/23 08:52 Room Air 05/22/23 07:21 Room Air 05/22/23 04:00 100 Room Air 05/22/23 03:00 Room Air 05/22/23 02:30 Room Air 05/22/23 01:30 EST Room Air 05/22/23 01:27 EST 05/22/23 01:14 EST Room Air 05/22/23 01:00 EDT Room Air Laboratory Results Abnormal lab results 05/21/23 05/22/23 Range/Units 22:30 03:59 WBC 12.39 H 12.70 H (4.8-10.8) K/ul RBC 4.42 L (4.70-6.10) M/uL Hgb 13.8 L (14.0-18.0) g/dl Hct 39.6 L (42.0-52.0) % Neut # (Auto) 10.70 H 11.44 H (1.40-6.50) K/uL Lymph # (Auto) 0.88 L 0.54 L (1.20-3.40) K/uL [place] # (Auto) 0.61 H 0.61 H (0.11-0.59) K/uL Anion Gap 13 H (3-11) BUN/Creatinine Ratio 8.0 L 9.5 L (10-20) Glucose 100 H (70-99(Fasting)) mg/dl Lactate 4.0 H* (0.4-2.0) mmol/L Calcium 8.1 L (8.6-10.3) mg/dl Magnesium 1.5 L (1.7-2.4) mg/dl Total Protein 8.5 H (6.0-8.3) gm/dl SARS-CoV-2 (PCR) DETECTED A* (NotDetected) Diagnostic Findings CT head - Unremarkable on my read CTV - Unremarkable MRI brain - Unremarkable
--- NOTE | 2023-05-22 13:40 | Hospitalist Progress Note ---
Date of Service May 22, 2023 Assessment & Plan (1) Sepsis: Plan: Sepsis Secondary to COVID-19 bronchitis with superimposed bacterial infection Acute metabolic encephalopathy secondary to above --MRI Brain:No acute abnormality is seen in particular there is no evidence of T2 hyperintensity or enhancement to suggest posterior reversible encephalopathy syndrome. --CT Venogram:Negative CT angiogram of the head. --CTA:Normal chest CTA. No pulmonary embolism. Blood cultures pending Mental status back to baseline Continue Rocephin, doxycycline Nebs as needed Saturating well on room air Antitussives as needed H/O alcohol use Monitor for withdrawal Continue thiamine, folic acid DVT Px: Lovenox SQ Code Status Full code Admission and Anticipated Discharge Date Admission Date: May 22, 2023 Subjective Patient is seen and examined at bedside States feeling much better today Less cough today No confusion as per patient's girlfriend at bedside Reports having some back pain Tolerating clear liquid diet Intermittent nausea but no vomiting today No other complaints Saturating well on room air Review of Systems Review of Systems: All systems reviewed & are unremarkable except as noted in Subjective Physical Exam Physical Exam: Physical Exam: Vitals signs as noted above General Appearance:Moderately built and nourished, no apparent distress Head: normocephalic, Atraumatic Eyes: normal inspection, EOMI Neck: supple, Trachea midline Respiratory/Chest: Decreased breath sounds, CTA, No accessory muscle use Cardiovascular: S1, S2, No murmur Abdomen/GI:Soft, Non tender, Bowel sounds present Extremities/Musculoskeletal:normal inspection, no edema Neurologic/Psych:AAOX3, grossly no focal neurological deficits Skin: normal color, warm Results & Data Results & Data Vital Signs (Past 12 Hours) Vital Signs Temp Pulse Resp BP Pulse Ox Pulse Ox O2 Del Method 05/22/23 10:40 36.9 C 83 20 109/66 96 Room Air 05/22/23 08:52 36.7 C 118 H 22 118/65 95 Room Air 05/22/23 07:21 38.1 C H 103 H 22 128/72 95 Room Air 05/22/23 04:00 100 05/22/23 03:00 92 H 22 103/69 100 Room Air 05/22/23 02:30 37.2 C 95 H 20 97/59 L 98 Room Air O2 Del Method 05/22/23 10:40 05/22/23 08:52 05/22/23 07:21 05/22/23 04:00 Room Air 05/22/23 03:00 05/22/23 02:30 Laboratory Results Short CBC 05/21/23 05/22/23 Range/Units 22:30 03:59 WBC 12.39 H 12.70 H (4.8-10.8) K/ul Hgb 16.4 13.8 L (14.0-18.0) g/dl Hct 46.9 39.6 L (42.0-52.0) % Plt Count 347 262 (130-400) K/uL BMP 05/21/23 05/22/23 22:30 03:59 Sodium 139 137 Potassium 3.5 4.0 Chloride 103 106 Carbon Dioxide 23 23 BUN 7 7 Creatinine 0.88 0.74 Glucose 100 H 99 Calcium 9.4 8.1 L Liver Function 05/21/23 Range/Units 22:30 Total Bilirubin 0.5 (0.2-1.0) mg/dl Direct Bilirubin 0.1 (0-0.2) mg/dl AST 23 (13-39) U/L ALT 17 (7-52) U/L Alkaline Phosphatase 65 (34-104) U/L Albumin 4.5 (3.4-5.0) gm/dl Urine 05/22/23 Range/Units 01:05 EST Urine Color [place] Urine Appearance Clear (Clear) Urine pH 6.5 (4.5-7.5) Ur Specific [place] 1.024 (1.000-1.030) Urine Protein Negative (Negative) Urine Glucose (UA) Negative (Negative)
[2023-05-22] MEDS: FOLIC ACID 1 MG TAB PO SCH (14:02)
[2023-05-22] MEDS: THIAMINE HCL 100 MG TAB PO SCH (14:02)
[2023-05-22] MEDS: DOXYCYCLINE HYCLATE 100 MG CAP PO SCH (21:47)
[2023-05-22] MEDS ORDERED: cefTRIAXone SODIUM 1,000 MG in DEXTROSE 5 % MINI-B 50 ML IV SCH (22:00)
--- NOTE | 2023-05-22 22:15 | Electrocardiogram Report ---
Test Reason : Blood Pressure : / mmHG Vent. Rate : 113 BPM Atrial Rate : 113 BPM P-R Int : 142 ms QRS Dur : 086 ms QT Int : 310 ms P-R-T Axes : 073 -20 048 degrees QTc Int : 425 ms Sinus tachycardia Possible Left atrial enlargement Borderline ECG No previous ECGs available Confirmed by Gerson Ng [id number] on 05/22/2023 10:15:09 PM Referred By: REFERRED SELF Confirmed By:Gerson Ng
[2023-05-23] MEDS: ACETAMINOPHEN 325 MG TAB PO PRN (04:40)
[2023-05-23 06:57] LABS: Hematocrit (blood only) 40.8 % (42.0-52.0); Mean Corpuscular Hemoglobin 30.6 pg (25.0-34.0); Mean Corpuscular Hgb Conc 34.3 g/dL (32.0-36.0); Mean Corpuscular Volume 89.3 fL (80.0-100.0); Mean Platelet Volume 9.8 fL (9.4-12.4); Platelet Count 239 K/uL (130-400); RDW Coefficient of Variation 12.2 % (11.5-14.5); Red Blood Count 4.57 M/uL (4.70-6.10); White Blood Count 7.61 K/ul (4.8-10.8)
[2023-05-23 07:18] LABS: BUN Creatinine Ratio 8.1 (10-20); C Reactive Protein 12.83 mg/dl (0-0.5); Calcium 8.8 mg/dl (8.6-10.3); Creatinine Clr Calc Pharmacy 117.4 ml/min; Est GFR (African American) 134.9 ml/min; Est GFR (Non-African American) 116.4 ml/min; Magnesium 1.9 mg/dl (1.7-2.4); Potassium 3.6 mmol/L (3.5-5.1)
[2023-05-23] MEDS: ENOXAPARIN INJ 40 MG/0.4 ML SYR SQ SCH (08:29)
[2023-05-23] MEDS: FOLIC ACID 1 MG TAB PO SCH (08:29)
[2023-05-23] MEDS: DOXYCYCLINE HYCLATE 100 MG CAP PO SCH (08:29)
[2023-05-23] MEDS: THIAMINE HCL 100 MG TAB PO SCH (08:29)
[2023-05-23] MEDS ORDERED: AZITHROMYCIN 250 MG TAB PO SCH (09:00)
[2023-05-23] MEDS ORDERED: cefTRIAXone SODIUM 1,000 MG in DEXTROSE 5 % MINI-B 50 ML IV SCH (11:00)
--- NOTE | 2023-05-23 12:57 | Hospitalist Progress Note ---
Date of Service May 23, 2023 Assessment & Plan (1) Sepsis: Plan: Sepsis Secondary to COVID-19 bronchitis with superimposed bacterial infection Acute metabolic encephalopathy secondary to above --MRI Brain:No acute abnormality is seen in particular there is no evidence of T2 hyperintensity or enhancement to suggest posterior reversible encephalopathy syndrome. --CT Venogram:Negative CT angiogram of the head. --CTA:Normal chest CTA. No pulmonary embolism. Blood cultures negative to date Mental status back to baseline Continue Rocephin, doxycycline Nebs as needed Saturating well on room air Antitussives as needed Transition to p.o. antibiotics to complete the course Plan to discharge home today H/O alcohol use Monitor for withdrawal Continue thiamine, folic acid DVT Px: Lovenox SQ Code Status Full code Disposition Home Admission and Anticipated Discharge Date Admission Date: May 22, 2023 Subjective Patient is seen and examined at bedside Doing much better today Has only minimal cough Denies any dyspnea No recurrence of confusion Denies any chest pain, dizziness, nausea, vomiting, abdominal pain, diarrhea Saturating well on room air Eager to get discharged Review of Systems Review of Systems: All systems reviewed & are unremarkable except as noted in Subjective Physical Exam Physical Exam: Physical Exam: Vitals signs as noted above General Appearance:Moderately built and nourished, no apparent distress Head: normocephalic, Atraumatic Eyes: normal inspection, EOMI Neck: supple, Trachea midline Respiratory/Chest: Decreased breath sounds, CTA, No accessory muscle use Cardiovascular: S1, S2, No murmur Abdomen/GI:Soft, Non tender, Bowel sounds present Extremities/Musculoskeletal:normal inspection, no edema Neurologic/Psych:AAOX3, grossly no focal neurological deficits Skin: normal color, warm Results & Data Results & Data Vital Signs (Past 12 Hours) Vital Signs Temp Pulse Pulse Resp BP BP Pulse Ox 05/23/23 12:35 36.6 C 78 18 100/63 96 05/23/23 12:25 36.7 C 69 18 108/66 102/60 95 05/23/23 10:01 05/23/23 08:12 36.7 C 69 18 108/66 95 05/23/23 05:57 84 05/23/23 04:00 37.0 C 92 H 18 116/75 97 05/23/23 01:14 O2 Del Method 05/23/23 12:35 Room Air 05/23/23 12:25 05/23/23 10:01 Room Air 05/23/23 08:12 Room Air 05/23/23 05:57 05/23/23 04:00 Room Air 05/23/23 01:14 Room Air Laboratory Results Short CBC 05/23/23 Range/Units 06:36 WBC 7.61 (4.8-10.8) K/ul Hgb 14.0 (14.0-18.0) g/dl Hct 40.8 L (42.0-52.0) % Plt Count 239 (130-400) K/uL BMP 05/23/23 06:36 Sodium 138 Potassium 3.6 Chloride 106 Carbon Dioxide 27 BUN 7 Creatinine 0.86 Glucose 91 Calcium 8.8
--- NOTE | 2023-05-23 14:05 | Discharge Summary ---
Date of Service May 23, 2023 Admission HPI Per Admitting Provider History obtained from patient and records. No significant medical history. 2 weeks history of junky cough symptoms productive of yellow-green sputum, body aches, poor appetite, chest pain/shortness of breath from coughing. Possible sick contacts at work. Patient completed COVID-19 vaccination. Yesterday, patient woke up with generalized headache symptoms followed by nausea, emesis. No abdominal pain. Patient somewhat confused as per girlfriend. Patient brought to ER for evaluation. IV ceftriaxone administered at the ER. Patient mentation currently back to baseline. 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 Admission Exam Per Admitting Provider GENERAL: Slightly uncomfortable, no respiratory distress SKIN: Normal color, warm HEENT: [place] palpebral conjunctivae, no ptosis, dry buccal mucosa NECK : Supple, no tenderness CHEST : Decreased breath sounds, no tenderness HEART : RRR, no obvious murmurs ABDOMEN: Some distention, nontender EXTREMITIES : No LE swelling/tenderness, no other conspicuous deformities noted NEUROLOGIC : Coherent, no facial asymmetry, no other gross focality Principal Diagnosis Sepsis Secondary to COVID-19 bronchitis with superimposed bacterial infection Acute metabolic encephalopathy Discharge Data Allergies Allergy/AdvReac Type Severity Reaction Status Date / Time bee venom protein (honey bee) Allergy Mild Verified 05/22/23 09:37 Consultations 05/22/23 02:07 ED Decision to Admit Stat 05/22/23 03:09 Consult Neurology Routine Procedures Performed Laboratory Results WBC 7.61 K/ul (4.8-10.8) 05/23/23 06:36 RBC 4.57 M/uL (4.70-6.10) L 05/23/23 06:36 Hgb 14.0 g/dl (14.0-18.0) 05/23/23 06:36 Hct 40.8 % (42.0-52.0) L 05/23/23 06:36 MCV 89.3 fL (80.0-100.0) 05/23/23 06:36 MCH 30.6 pg (25.0-34.0) 05/23/23 06:36 MCHC 34.3 g/dL (32.0-36.0) 05/23/23 06:36 RDW Std Deviation 40.0 fL (36.4-46.3) 05/23/23 06:36 RDW Coeff of Ludy 12.2 % (11.5-14.5) 05/23/23 06:36 Plt Count 239 K/uL (130-400) 05/23/23 06:36 MPV 9.8 fL (9.4-12.4) 05/23/23 06:36 Immature Gran % (Auto) 0.4 % 05/22/23 03:59 Neut % (Auto) 90.0 % 05/22/23 03:59 Lymph % (Auto) 4.3 % 05/22/23 03:59 [place] % (Auto) 4.8 % 05/22/23 03:59 Eos % (Auto) 0.2 % 05/22/23 03:59 Baso % (Auto) 0.3 % 05/22/23 03:59 Neut # (Auto) 11.44 K/uL (1.40-6.50) H 05/22/23 03:59 Lymph # (Auto) 0.54 K/uL (1.20-3.40) L 05/22/23 03:59 [place] # (Auto) 0.61 K/uL (0.11-0.59) H 05/22/23 03:59 Eos # (Auto) 0.02 K/uL (0.00-0.50) 05/22/23 03:59 Baso # (Auto) 0.04 K/uL (0.00-0.20) 05/22/23 03:59 Immature Gran # (Auto) 0.05 K/uL (0.01-0.20) 05/22/23 03:59 PT 11.3 Seconds (9.0-12.0) 05/21/23 22:30 INR 1.0 (0.9-1.1) 05/21/23 22:30 Sodium 138 mmol/L (136-145) 05/23/23 06:36 Potassium 3.6 mmol/L (3.5-5.1) 05/23/23 06:36 Chloride 106 mmol/L (98-107) 05/23/23 06:36 Carbon Dioxide 27 mmol/L (21-32) 05/23/23 06:36 Anion Gap 5 (3-11) 05/23/23 06:36 BUN 7 mg/dl (6-23) 05/23/23 06:36 Creatinine 0.86 mg/dl (0.6-1.4) 05/23/23 06:36 Est Cr Clr Drug Dosing 117.4 ml/min 05/23/23 06:36 Est GFR ( Amer) 134.9 ml/min 05/23/23 06:36 Est GFR (Non-Af Amer) 116.4 ml/min 05/23/23 06:36 BUN/Creatinine Ratio 8.1 (10-20) L 05/23/23 06:36 Glucose 91 mg/dl (70-99(Fasting)) 05/23/23 06:36 Lactate 2.0 mmol/L (0.4-2.0) 05/22/23 00:37 Calcium 8.8 mg/dl (8.6-10.3) 05/23/23 06:36 Magnesium 1.9 mg/dl (1.7-2.4) 05/23/23 06:36 Total Bilirubin 0.5 mg/dl (0.2-1.0) 05/21/23 22:30 Direct Bilirubin 0.1 mg/dl (0-0.2) 05/21/23 22:30 AST 23 U/L (13-39) 05/21/23 22:30 ALT 17 U/L (7-52) 05/21/23 22:30 Alkaline Phosphatase 65 U/L (34-104) 05/21/23 22:30 Troponin I High Sens 2.3 pg/ml (0-20) 05/22/23 00:37 C-Reactive Protein 12.83 mg/dl (0-0.5) H 05/23/23 06:36 Total Protein 8.5 gm/dl (6.0-8.3) H 05/21/23 22:30 Albumin 4.5 gm/dl (3.4-5.0) 05/21/23 22:30 Lipase 14 U/L (11-82) 05/22/23 00:37 Procalcitonin < 0.05 ng/ml (0-0.5) 05/21/23 22:30 Urine Color [place] 05/22/23 01:05 EST Urine Appearance Clear (Clear) 05/22/23 01:05 EST Urine pH 6.5 (4.5-7.5) 05/22/23 01:05 EST Ur Specific [place] 1.024 (1.000-1.030) 05/22/23 01:05 EST Urine Protein Negative (Negative) 05/22/23 01:05 EST Urine Glucose (UA) Negative (Negative) 05/22/23 01:05 EST Urine Ketones Negative (Negative) 05/22/23 01:05 EST Urine Blood Negative (Negative) 05/22/23 01:05 EST Urine Nitrite Negative (Negative) 05/22/23 01:05 EST Urine Bilirubin Negative (Negative) 05/22/23 01:05 EST Urine Urobilinogen Negative (Negative) 05/22/23 01:05 EST Ur Leukocyte Esterase Negative (Negative) 05/22/23 01:05 EST Adenovirus (PCR) Not Detected (NotDetected) 05/21/23 22:30 B. pertussis DNA (PCR) Not Detected (NotDetected) 05/21/23 22:30 B.parapertussis DNA PCR Not Detected (NotDetected) 05/21/23 22:30 C. pneumoniae DNA (PCR) Not Detected (NotDetected) 05/21/23 22:30 Coronavirus OC43 (PCR) Not Detected (NotDetected) 05/21/23 22:30 Coronavirus HKU1 (PCR) Not Detected (NotDetected) 05/21/23 22:30 Coronavirus 229E (PCR) Not Detected (NotDetected) 05/21/23 22:30 SARS-CoV-2 (PCR) DETECTED (NotDetected) A* 05/21/23 22:30 Coronavirus NL63 (PCR) Not Detected (NotDetected) 05/21/23 22:30 Human Metapneumovir PCR Not Detected (NotDetected) 05/21/23 22:30 Influenza Type A (PCR) Not Detected (NotDetected) 05/21/23 22:30 Influenza Type B (PCR) Not Detected (NotDetected) 05/21/23 22:30 M. pneumoniae (PCR) Not Detected (NotDetected) 05/21/23 22:30 Parainfluenza 1 (PCR) Not Detected (NotDetected) 05/21/23 22:30 Parainfluenza 2 (PCR) Not Detected (NotDetected) 05/21/23 22:30 Parainfluenza 3 (PCR) Not Detected (NotDetected) 05/21/23 22:30 Parainfluenza 4 (PCR) Not Detected (NotDetected) 05/21/23 22:30 RSV (PCR) Not Detected (NotDetected) 05/21/23 22:30 Entero/Rhino (PCR) Not Detected (NotDetected) 05/21/23 22:30 Group A Strep (PCR) NOT DETECTED (NotDetected) 05/21/23 23:00 Impressions Chest X-Ray 05/21/23 22:23 XR chest 1V portable CLINICAL HISTORY: Sepsis TECHNIQUE: Single frontal radiograph of the chest was obtained. Comparison: None available at the time of this dictation. FINDINGS: No lines and tubes are seen. The cardiomediastinal silhouette is normal. The lungs are clear. No evidence of pleural effusion or pneumothorax. IMPRESSION: No acute abnormalities and in particular no radiographic evidence of pneumonia. ACT 112: Negative or not required by law. Electronically signed by: Gus Beltran M.D. 05/22/2023 10:36 AM Abdomen/Pelvis CT 05/22/23 00:12 Exam(s): CT ABDOMEN + PELVIS With Contrast IV Amt: 109 ml opti 320 EXAM: CT Abdomen and Pelvis With Intravenous Contrast CLINICAL HISTORY: Reason for exam: Covid, n/v. TECHNIQUE: Axial computed tomography images of the abdomen and pelvis with intravenous contrast. Automated exposure control was utilized for the study. A dose lowering technique was utilized adhering to the principles of ALARA. CONTRAST: Patient received 109 ml opti 320 of IV contrast COMPARISON: No relevant prior studies available. FINDINGS: Lung bases: Unremarkable. No mass. No consolidation. ABDOMEN: Liver: Unremarkable. No mass. Gallbladder and bile ducts: Unremarkable. No calcified stones. No ductal dilation. Pancreas: Unremarkable. No mass. No ductal dilation. Spleen: Unremarkable. No splenomegaly. Adrenals: Unremarkable. No mass. Kidneys and ureters: Unremarkable. No solid mass. No hydronephrosis. Stomach and bowel: Unremarkable. No obstruction. No mucosal thickening. PELVIS: Appendix: No findings to suggest acute appendicitis. Bladder: Unremarkable. No mass. Reproductive: Unremarkable as visualized. ABDOMEN and PELVIS: Intraperitoneal space: Unremarkable. No free air. No significant fluid collection. Bones/joints: No acute fracture. No dislocation. Soft tissues: Unremarkable. Vasculature: Unremarkable. No abdominal aortic aneurysm. Lymph nodes: Unremarkable. No enlarged lymph nodes. IMPRESSION: Normal abdomen and pelvis CT. Electronically signed by: Chan Mccain MD 05/22/23 03:12 AM Chest CTA 05/22/23 00:12 Exam(s): CTA CHEST IV Amt: 109 ml opti 320 EXAM: CT Angiography Chest With Intravenous Contrast CLINICAL HISTORY: Reason for exam: Covid, sob, tachcyardia, r/o PE. TECHNIQUE: Axial computed tomographic angiography images of the chest with intravenous contrast. Automated exposure control was utilized for the study. A dose lowering technique was utilized adhering to the principles of ALARA. MIP reconstructed images were created and reviewed. COMPARISON: No relevant prior studies available. FINDINGS: Pulmonary arteries: Unremarkable. No pulmonary embolism. Aorta: No acute findings. No thoracic aortic aneurysm. Lungs: Unremarkable. No mass. No consolidation. Pleural space: Unremarkable. No significant effusion. No pneumothorax. Heart: Unremarkable. No cardiomegaly. No significant pericardial effusion. No evidence of RV dysfunction. Bones/joints: No acute fracture. No dislocation. Soft tissues: Unremarkable. Lymph nodes: Unremarkable. No enlarged lymph nodes. IMPRESSION: Normal chest CTA. No pulmonary embolism. Electronically signed by: Chan Mccain MD 05/22/23 03:[address] 05/22/23 00:13 CR Exam(s): CT HEAD Without Contrast EXAM: CT Head Without Intravenous Contrast CLINICAL HISTORY: Reason for exam: syncope UMANZOR, covid. TECHNIQUE: Axial computed tomography images of the head/brain without intravenous contrast. Automated exposure control was utilized for the study. A dose lowering technique was utilized adhering to the principles of ALARA. COMPARISON: No relevant prior studies available. FINDINGS: Brain: There is subcortical edema in the occipital lobes. No hemorrhage. No significant white matter disease. Ventricles: Unremarkable. No ventriculomegaly. Bones/joints: Unremarkable. No acute fracture. Soft tissues: Unremarkable. Sinuses: Unremarkable as visualized. No acute sinusitis. Mastoid air cells: Unremarkable as visualized. No mastoid effusion. IMPRESSION: Subcortical edema in the occipital lobes, which can be seen with posterior reversible encephalopathy syndrome. If there is continued clinical concern, an MRI may be of benefit for further evaluation. Communications: Verify Receipt Electronically signed by: Uzma Merlos MD 05/22/23 01:[address] 05/22/23 00:13 Exam(s): CT HEAD With Contrast IV Amt: 109 ml opti 320 EXAM: CT Angiography Head With Intravenous Contrast CLINICAL HISTORY: Reason for exam: Covid, UMANZOR, syncope r/o CVST. TECHNIQUE: Axial computed tomographic angiography images of the head with intravenous contrast. Automated exposure control was utilized for the study. A dose lowering technique was utilized adhering to the principles of ALARA. MIP reconstructed images were created and reviewed. CONTRAST: Patient received 109 ml opti 320 of IV contrast COMPARISON: No relevant prior studies available. FINDINGS: The dural venous sinuses are patent. Right internal carotid artery: No acute findings. Intracranial segment is patent with no significant stenosis. No aneurysm. Right anterior cerebral artery: Unremarkable. No occlusion or significant stenosis. No aneurysm. Right middle cerebral artery: Unremarkable. No occlusion or significant stenosis. No aneurysm. Right posterior cerebral artery: Unremarkable. No occlusion or significant stenosis. No aneurysm. Right vertebral artery: Unremarkable as visualized. Left internal carotid artery: No acute findings. Intracranial segment is patent with no significant stenosis. No aneurysm. Left anterior cerebral artery: Unremarkable. No occlusion or significant stenosis. No aneurysm. Left middle cerebral artery: Unremarkable. No occlusion or significant stenosis. No aneurysm. Left posterior cerebral artery: Unremarkable. No occlusion or significant stenosis. No aneurysm. Left vertebral artery: Unremarkable as visualized. Basilar artery: Unremarkable. No occlusion or significant stenosis. No aneurysm. IMPRESSION: Negative CT angiogram of the head. Electronically signed by: Uzma Merlos MD 05/22/23 01:42 AM Brain MRI 05/22/23 02:00 MR brain wo/w con CLINICAL HISTORY: Covid-19 Eval for PRES TECHNIQUE: Multiplanar and multisequence MR images of the brain were obtained prior to and following administration of gadolinium contrast. Comparison: Comparison is made to CT head 05/22/2023 FINDINGS: No abnormal restricted diffusion is identified. The white matter is unremarkable. The ventricular system is normal in appearance. No mass or abnormal enhancement is seen. There is no mass effect or midline shift. There is no evidence of acute intraparenchymal hemorrhage. No extra axial fluid collections are seen. The corpus callosum, pituitary gland, and cerebellar tonsils appear grossly unremarkable. Flow voids of the major intracranial arterial vessels are identified. The imaged portions of the paranasal sinuses, mastoid air cells, and orbits are unremarkable. IMPRESSION: No acute abnormality is seen in particular there is no evidence of T2 hyperintensity or enhancement to suggest posterior reversible encephalopathy syndrome. ACT 112: Negative or not required by law. Electronically signed by: Gus Beltran M.D. 05/22/2023 11:23 AM Orbit X-Ray 05/22/23 03:01 XR orbits for MRI CLINICAL HISTORY: Screening for foreign body for MRI TECHNIQUE: AP and lateral views of the orbits were submitted for interpretation. Comparison: None available at the time of this dictation. FINDINGS/IMPRESSION: There are no radiopaque metallic foreign bodies. The osseous structures are unremarkable. Patient is cleared for MRI. ACT 112: Negative or not required by law. Electronically signed by: Gus Beltran M.D. 05/22/2023 9:51 AM Ordered Studies 05/22/23 00:12 CT abd pelvis IV con only Stat CT angio chest PE protocol Stat 05/22/23 00:13 CT head venogram w con Stat CT head/brain wo con Stat 05/22/23 02:00 MRI Brain [MR brain wo/w con] Stat Hospital Course (1) Sepsis: Sepsis Secondary to COVID-19 bronchitis with superimposed bacterial infection Acute metabolic encephalopathy secondary to above --MRI Brain:No acute abnormality is seen in particular there is no evidence of T2 hyperintensity or enhancement to suggest posterior reversible encephalopathy syndrome. --CT Venogram:Negative CT angiogram of the head. --CTA:Normal chest CTA. No pulmonary embolism. Blood cultures negative to date Mental status back to baseline Continue Rocephin, doxycycline Nebs as needed Saturating well on room air Antitussives as needed Transition to p.o. antibiotics to complete the course Plan to discharge home today H/O alcohol use Monitor for withdrawal Continue thiamine, folic acid DVT Px: Lovenox SQ Code Status Full code Disposition Home Total Time Total Time Spent Total Time Spent (In Minutes): 50 minutes Discharge Plan Discharge Items Patient Disposition: Home - Self-Care Reason For Visit: COVID, SEPSIS Discharge Diagnosis: Sepsis Secondary to COVID-19 bronchitis with superimposed bacterial infection Acute metabolic encephalopathy Activity: Per Instructions section Exercise/Sports: Wait until after follow-up appointment Non-emergency contact: Primary Care Provider Call non-emergency contact if: you have any medication questions, your symptoms worsen, your pain is concerning for you and you have a fever Follow-up/Referrals: Db Avila MD [Outside Practitioners] - 05/27/23 12:40 pm (Date & Time 05/27/2023 12:40 PM Provider Db Avila MD [facility] ) Diet: Regular Addtl Attending Provider Instructions: Follow-up with your primary care physician Dr. Avila on 05/27/2023 12:40 PM --Complete antibiotic course as prescribed. --Your blood cultures are pending at the time of discharge. Follow-up with your physician for results. --Minimize alcohol use as advised. Consider quitting use if able. --Monitor your oxygen saturation using pulse oximeter at home as advised. Seek immediate medical attention if your symptoms reoccur or worsen Please take all medications as instructed on discharge list below. Please call if you have any questions or problems. You can reach a [facility] hospitalist on duty at [facility] 24 hours a day by calling [phone] Home Isolation COVID-19 Instructions The following information about Home Isolation is from the CDC Website: https://www.cdc.gov/coronavirus/2019-ncov/hcp/udnmsrcj-hdsanre-qjeden.html Stay home except to get medical care People who are mildly ill with COVID-19 are able to isolate at home during their illness. You should restrict activities outside your home, except for getting medical care. Do not go to work, school, or public areas. Avoid using public transportation, ride-sharing, or taxis. Separate yourself from other people and animals in your home People: As much as possible, you should stay in a specific room and away from other people in your home. Also, you should use a separate bathroom, if availabl e. Animals: You should restrict contact with pets and other animals while you are sick with COVID-19, just like you would around other people. Although there have not been reports of pets or other animals becoming sick with COVID-19, it is still recommended that people sick with COVID-19 limit contact with animals until more information is known about the virus. When possible, have another member of your household care for your animals while you are sick. If you are sick with COVID-19, avoid contact with your pet, including petting, snuggling, being kissed or licked, and sharing food. If you must care for your pet or be around animals while you are sick, wash your hands before and after you interact with pets and wear a face mask. Call ahead before visiting your doctor If you have a medical appointment, call the healthcare provider and tell them that you have or may have COVID-19. This will help the healthcare providers office take steps to keep other people from getting infected or exposed. Wear a face mask You should wear a face mask when you are around other people (e.g., sharing a room or vehicle) or pets and before you enter a healthcare providers office. If you are not able to wear a face mask (for example, because it causes trouble breathing), then people who live with you should not stay in the same room with you, or they should wear a face mask if they enter your room. Cover your coughs and sneezes Cover your mouth and nose with a tissue when you cough or sneeze. Throw used tissues in a lined trash can. Immediately wash your hands with soap and water for at least 20 seconds or, if soap and water are not available, clean your hands with an alcohol-based hand manager construction that contains at least 60% alcohol. Clean your hands often Wash your hands often with soap and water for at least 20 seconds, especially after blowing your nose, coughing, or sneezing; going to the bathroom; and before eating or preparing food. If soap and water are not readily available, use an alcohol-based hand manager construction with at least 60% alcohol, covering all surfaces of your hands and rubbing them together until they feel dry. Soap and water are the best option if hands are visibly dirty. Avoid touching your eyes, nose, and mouth with unwashed hands. Avoid sharing personal household items You should not share dishes, drinking glasses, cups, eating utensils, towels, or bedding with other people or pets in your home. After using these items, they should be washed thoroughly with soap and water. Clean all high-touch surfaces everyday High touch surfaces include counters, tabletops, doorknobs, bathroom fixtures, toilets, phones, keyboards, tablets, and bedside tables. Also, clean any surfaces that may have blood, stool, or body fluids on them. Use a household cleaning spray or wipe, according to the label instructions. Labels contain instructions for safe and effective use of the cleaning product including precautions you should take when applying the product, such as wearing gloves and making sure you have good ventilation during use of the product. Monitor your symptoms Seek prompt medical attention if your illness is worsening (e.g., difficulty breathing).Beforeseeking care, call your healthcare provider and tell them that you have, or are being evaluated for, COVID-19. Put on a face mask before you enter the facility. These steps will help the healthcare providers office to keep other people in the office or waiting room from getting infected or exposed. Ask your healthcare provider to call the local or critical access hospital health d epartment. Persons who are placed under active monitoring or facilitated self- monitoring should follow instructions provided by their local health department or occupational health professionals, as appropriate. When working with your local health department check their available hours. If you have a medical emergency and need to call 911, notify the dispatch personnel that you have, or are being evaluated for COVID-19. If possible, put on a face mask before emergency medical services arrive. Discontinuing home isolation Patients with confirmed COVID-19 should remain under home isolation precautions until the risk of secondary transmission to others is thought to be low. The decision to discontinue home isolation precautions should be made on a xfua-[id number] basis, in consultation with healthcare providers and critical access hospital and [facility] health departments. Pending Studies at Discharge: Yes Studies:: Blood Cultures Stand-Alone Forms: [facility], Work/School Release, Smoking Cessation Medications and DC Order Prescriptions: New doxycycline hyclate 100 mg Capsule 100 mg PO BID Qty: 14 0RF thiamine HCl (vitamin B1) 100 mg Tablet 100 mg PO QAM Qty: 20 0RF cefdinir 300 mg capsule 300 mg PO BID Qty: 14 0RF Advanced Probiotic 625 mg (10 billion cell) Capsule 2 cap PO DAILY Qty: 20 0RF albuterol sulfate 90 mcg/actuation HFA aerosol inhaler 1 inh inhalation Q6H PRN (Reason: shortness of breath or wheezing) Qty: 6.7 0RF Discharge Orders: Discharge Order (Routine); Ordered 05/23/23 Ordered By: Azam Khanna Admission Data Admit Date/Time: 05/22/23 03:07 Attending Provider: Azam Khanna Admit Provider: Zeke Bonilla Primary Care Provider: PCP,ELSA Other Providers: Zeke Bonilla; Roberta Walls; Pete Callejas; Roberta Ferraro; Steve Garcia; Mart Reno; Jonathan Grant; Miko Mena; Antionette Rose; Edgar Calzada; Matthias Kang; Michelle Palafox; José Antonio Mcleod; Renetta Cedillo; Marisa Bahena Other Interventions: Discharge Summary Assessment (RN) Last Done: 05/23/23 12:25
[2023-05-24] MEDS ORDERED: ADVANCED PROBIOTIC 1250 MG CAPSULE PO SCH (09:00)
== END 2023-05-23 14:27 | disposition home or self-care (01) | DRG 871 ==
LOC: ED 22:13 → EDINP 05-22 03:07 → 2N 05-22 19:27